=== PATIENT | male | born 1975 | race Caucasian/White ===

== ENCOUNTER 2024-03-13 23:30 | Emergency (ER) | payer SELFPAY ==
[2024-03-13 23:57] VITALS: BP 132/103; PULSE 97; RESP 16; TEMP 37.1; O2SAT 94; BMI 35.0
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
[2024-03-14] MEDS: ACETAMINOPHEN 500 MG TABLET 1000 MG PO (00:30)
[2024-03-14] MEDS: predniSONE 20 MG TABLET 40 MG PO (00:30)
[2024-03-14] MEDS: CYCLOBENZAPRINE HCL 10 MG TABLET PO (00:30)
== END 2024-03-14 00:46 | disposition home or self-care (01) ==
LOC: ED 03-14 00:33
PROVIDERS: Emergency Provider Family Medicine
DX: M62.838 Other muscle spasm (principal); M54.2 Cervicalgia
CPT/HCPCS: 99283; A9270; J7512

== ENCOUNTER 2024-08-03 17:50 | Emergency (ER) | payer MEDICAID, SELFPAY ==
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
--- OUTSIDE RECORDS SUMMARY | 2024-08-03 17:54 | XMS_ITS ---
Author Organization [facility] Address [address] [place] [address] Care Team Providers Care Blasting Contract Man Name Role Phone Unavailable Unavailable Unavailable Surgery Details Not on file Complications Check Surgery Details section. Procedure Estimated Blood Loss Check Surgery Details section. Procedure Findings Check Surgery Details section. Procedure Specimens Taken Check Surgery Details section.
--- OUTSIDE RECORDS SUMMARY | 2024-08-03 17:54 | XMS_ITS | Referral Summary ---
Author Organization [facility] Address [address] [place] [address] Care Team Providers Care Wax Blender Name Role Phone Elsewhere, Pcp Primary Care Provider Unavailabl e Source Comments Patient records contain information from all sites at [facility]. For routine questions regarding patient records, call [phone] during business hours, M-F 8:00 AM - 5:00 PM Central Time. Record requests for emergency care only can be directed to [phone] at any time.[facility] Allergies No known active allergies Medications acetaminophen (TYLENOL) 500 mg tablet Take 1,000 mg by mouth every 6 (six) hours as needed for pain. 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 1 to 4 times per year [...] Answer Date Recorded PHQ-2 Score 2 06/30/2019 [facility] [place] of Occupat ional Health - Occupational Stress [...] Sex Assigned at Male 08/18/2018 2:10 PM REGULATORY ASSOCIATE Legal Sex Male 8:06 AM REGULATORY ASSOCIATE Gender Identity Male 06/19/2020 7:27 AM REGULATORY ASSOCIATE Sexual Orientation Straight 08/18/2018 2: 10 PM REGULATORY ASSOCIATE Last Filed Vital Signs Vital Sign Reading Time Taken Comments Blood Pressure 112/85 06/18/2020 9:21 AM REGULATORY ASSOCIATE Pulse 102 06/18/2020 9:21 AM REGULATORY ASSOCIATE Temperature 36.6 C (97.9 F) 09/22/2019 10:40 AM REGULATORY ASSOCIATE Respiratory Rate 12 06/18/2020 9:21 AM REGULATORY ASSOCIATE Oxygen Saturation 97% 06/18/2020 9:21 AM REGULATORY ASSOCIATE Inhaled Oxygen Concentration - - Weight 104 kg (228 lb 9.9 oz) 09/19/2019 9:05 AM REGULATORY ASSOCIATE Height 186 cm (6' 1.23) 09/19/2019 9:05 AM REGULATORY ASSOCIATE Body Mass Index 29.97 09/19/2019 9:05 AM REGULATORY ASSOCIATE Plan of Treatment Not on file Medical Devices Implanted Type Area Box Maker Wood Device Identifier Shelf Expiration Date Model / Serial / Lot Cmnt Bn Hi Visc Pmma 40 - [id number] Implanted:Qt y: 1 on 10/24/2018 by Hardik Dodge M.D. at [facility] Bone Cement Left: Hip Octavio [id number] / / Hardware (E.G. Pins/Screws/ Rods)-2017 Implanted: (Quantity not on file) Hardware e.g. pins/screws /rods Left: Knee Hardware (E.G. Pins/Screws/ Rods)-2017 Implanted: (Quantity not on file) Hardware e.g. pins/screws /rods Left: Tibia Scrw Hgp Acet Ft 6.5x30 - [id number] Implanted:Qt y: 1 on 10/24/2018 at [facility] Hardware e.g. pins/screws /rods Left: Hip [employer] 07/18/2028 [id number] / / [id number] Scrw Hgp Acet Ft 6.5x50 - [id number] Implanted:Qt y: 1 on 10/24/2018 at [facility] Hardware e.g. pins/screws /rods Left: Hip [employer] 07/18/2028 [id number] / / [id number] Scrw Hgp Acet Ft 6.5x20 - [id number] Implanted:Qt y: 1 on 10/24/2018 at [facility] Hardware e.g. pins/screws /rods Left: Hip [employer] 05/18/2028 [id number] / / [id number] Scrw Hgp Acet Ft 6.5x20 - [id number] Implanted:Qt y: 1 on 10/24/2018 at [facility] Hardware e.g. pins/screws /rods Left: Hip [employer] 08/18/2028 [id number] / / [id number] Wre Fix Lq Ss Sngl End 1.2x30 - [id number] 0 Implanted:Qt y: 3 on 10/24/2018 at [facility] Hardware e.g. pins/screws /rods Left: Hip [employer] [id number] / / Lnr 0d 60x36 - [id number] 0 Implanted:Qt y: 1 on 10/24/2018 at [facility] Hip Implant Left: Hip [employer] 02/15/2023 [id number] / / [id number] Hip Stm Smm Hernandez Sz6 150 - [id number] 0 Implanted:Qt y: 1 on 10/24/2018 at [facility] Hip Implant Left: Hip [employer] 05/18/2028 [id number] / / [id number] Fem Hd Art Ez Crmc +1.5x36 - [id number] Implanted:Qt y: 1 on 10/24/2018 at [facility] Hip Implant Left: Hip [employer] 08/18/2023 [id number] / / [id number] Shll Acet Trb 62 - [id number] 0 Implanted:Qt y: 1 on 10/24/2018 at [facility] Hip Implant Left: Hip [employer] 08/18/2023 [id number] / / [id number] Procedures Procedure Name Priority Date/Time Associated Diagnosis Comments BASIC METABOLIC PANEL, S/P Routine 09/20/2019 4:25 AM REGULATORY ASSOCIATE from Last 3 Months or Most Recently Relevant to Health Maintenance Results * (ABNORMAL) Basic Metabolic Panel (09/20/2019 4:25 AM REGULATORY ASSOCIATE) [facility] Potassium, S 4.8 3.6 - 5.2 mmol/L 09/20/2019 5:59 AM REGULATORY ASSOCIATE DTL Sodium, S 141 135 - 145 mmol/L 09/20/2019 5:59 AM REGULATORY ASSOCIATE DTL Chloride, S 106 98 - 107 mmol/L 09/20/2019 5:59 AM REGULATORY ASSOCIATE DTL Bicarbonate, S 24 22 - 29 mmol/L 09/20/2019 5:59 AM REGULATORY ASSOCIATE DTL Anion Gap 11 7 - 15 09/20/2019 5:59 AM REGULATORY ASSOCIATE DTL BUN (Blood Urea Nitrogen), S 10 8 - 24 mg/dL 09/20/2019 5:59 AM REGULATORY ASSOCIATE DTL Creatinine 0.97 0.74 - 1.35 mg/dL 09/20/2019 5:59 AM REGULATORY ASSOCIATE DTL eGFR-Non Black/ >90 >=60 mL/min/BSA 09/20/2019 5:59 AM REGULATORY ASSOCIATE DTL Comment: ----ADDITIONAL INFORMATION---- Estimated GFR calculated using the 2009 CKD_EPI creatinine equation. eGFR-Black/Afri can Finnish >90 >=60 mL/min/BSA 09/20/2019 5:59 AM REGULATORY ASSOCIATE DTL Comment: ----ADDITIONAL INFORMATION---- Estimated GFR calculated using the 2009 CKD_EPI creatinine equation. Calcium, Total, S 8.3(L) 8.6 - 10.0 mg/dL 09/20/2019 5:59 AM REGULATORY ASSOCIATE DTL Glucose, S 151(H) 70 - 140 mg/dL 09/20/2019 5:59 AM REGULATORY ASSOCIATE DTL Blood (Blood, Venous) 09/20/2019 4:25 AM REGULATORY ASSOCIATE 09/20/2019 5:44 AM REGULATORY ASSOCIATE Beata Warren APRN, C.N.P., M.S.N. LAB BLOOD AD D-ON Final Result [facility] [address] [place] [address], [facility] [address] [place] [address] from Last 3 Months or Most Recently Relevant to Health Maintenance Insurance * Guarantor: [employer] Account Type Relation to Patient Date of Phone Billing Address Workers [employer] [address] [place] [address] SELECTIVE INSURANCE SELECTIVE INSURANCE SELECT[employer]ANCE [employer]ANCE [employer] Advance Directives For more information, please contact: [phone] * Full Code (Latest Code Status on File) Date Activated Date Inactivated Comments 09/19/2019 6:21 PM 09/22/2019 1:51 PM Question Answer Comments Full Code: Discussed * Full Code Date Activated Date Inactivated Comments 12/26/2018 5:32 PM 12/28/2018 5:35 PM Question Answer Comments Full Code: Not Discussed Due to: Not medically appropriate Care Teams Wax Blender Relationship Specialty Start Date End Date Elsewhere, Pcp PCP - General 11/09/21
[2024-08-03 18:28] VITALS: BP 103/78; PULSE 124; RESP 20; TEMP 38.6; O2SAT 92; BMI 35.0
--- NOTE | 2024-08-03 18:51 | CRLHL7_ITS ---
For Patients: As a result of the Century Cures Act, medical imaging exams and procedure reports are released immediately into your electronic medical record. You may view this report before your referring provider. If you have questions, please contact your health care provider. Indication: Cough. Technique: Chest 2 views. Comparison: None. Findings/Impression: Cardiovascular and mediastinum: Heart size and vasculature are normal in caliber and appearance. Lungs and pleural spaces: Left perihilar infiltrates consistent with pneumonia. There is a masslike component also in this area. Follow-up imaging is indicated to ensure resolution and exclude a malignant process. Remainder of the lungs and pleural spaces are clear. No pneumothorax. Bones and soft tissues: No significant findings. Dictated by Luis Felipe Forrest MD @ 08/03/2024 7:39:15 PM (Electronically Signed)
[2024-08-03 19:18] LABS: PCR FLU A Negative PCR FLU A (Negative); PCR FLU B Negative PCR FLU B (Negative); PCR RSV Negative PCR RSV (Negative); SARS PCR* Negative SARS-CoV-2 (Negative)
--- NOTE | 2024-08-03 19:41 | ED_ITS ---
HPI - General Adult General Chief complaint: Cough Stated complaint: Fever, cough that pulled stomach muscles, 2 wks Time Seen by Provider: 08/03/24 19:26 History of Present Illness HPI narrative: This 49-year-old male comes in reporting cough and fever. His symptoms began about a week and half ago. He arrives here with temperature of 101.4? F and some tachycardia at 124 beats per minute. He is getting 92% oximetry on room air. Related Data Home Medications ?Medication ?Instructions ?Recorded ?Confirmed No Known Home Medications 08/03/24 08/03/24 Allergies Allergy/AdvReac Type Severity Reaction Status Date / Time No Known Drug Allergies Allergy Verified 03/14/24 00:01 Review of Systems Status of ROS: Reports: 10 or more systems reviewed and unremarkable except as noted in History and below Narrative: Constitutional: No weight gain or loss. Eyes: No discharge. No vision changes. HENT: No congestion, no sore throat, no ear pain. Cardiovascular: No chest pain, no palpitations. Respiratory: No shortness of breath, no wheezes. Frequent cough. Gastrointestinal: No abdominal pain, no vomiting, no diarrhea. Genitourinary: No dysuria, no hematuria. Musculoskeletal: Normal range of motion. Skin: No rashes, no pruritis. Neurological: No dizziness, weakness, sensory change, speech change. Endo/Heme/Allergies: No bruising or bleeding. No polydipsia. Pysch: no suicidality, no anxiety, no insomnia. All other systems reviewed and are negative. Exam Narrative: Exam Narrative: Constitutional: Well-developed, well-nourished. HEENT: Normocephalic, atraumatic. Neck: Normal range of motion. Nontender. Supple. Heart: Regular. No murmurs. Normal rate. Intact distal pulses. Lungs: No chest discomfort. Bilateral rhonchi. Abdomen: Normal bowel sounds. Nontender. No rebound tenderness. Genitalia: Deferred. Back: No midline tenderness. Normal range of motion. Extremities: Normal range of motion. No injury. Skin: Intact. No rash. Warm. No erythema or pallor. Neurologic: No altered sensation. No weakness. Alert and oriented. Psychiatric: No suicidality. No anxiety or depression. No insomnia. Nursing notes and vitals signs are reviewed. Const: Vital Signs, click to edit/add: Vital Signs - 24 hr 08/03/24 18:28 Temperature 101.4 F H Pulse Rate [Pulse Oximeter] 124 H Respiratory Rate 20 Blood Pressure [Ri ght Upper Arm] 103/78 Pulse Oximetry 92 Oxygen Delivery Me thod Room Air Course Vital Signs Vital signs: Initial Vital Signs Temperature 101.4 F H 08/03/24 18:28 Temperature Source Temporal Artery Scan 08/03/24 18:28 Pulse Rate 124 H 08/03/24 18:28 Respiratory Rate 20 08/03/24 18:28 Blood Pressure 103/78 08/03/24 18:28 Blood Pressure Mean 86 08/03/24 18:28 Blood Pressure Position Sitting 08/03/24 18:28 Pulse Oximetry 92 08/03/24 18:28 Oxygen Delivery Method Room Air 08/03/24 18:28 Vital Signs Temperature 101.4 F H 08/03/24 18:28 Pulse Rate 124 H 08/03/24 18:28 Respiratory Rate 20 08/03/24 18:28 Blood Pressure 103/78 08/03/24 18:28 Pulse Oximetry 92 08/03/24 18:28 Oxygen Delivery Method Room Air 08/03/24 18:28 Temperature 101.4 F H 08/03/24 18:28 Pulse Rate 124 H 08/03/24 18:28 Respiratory Rate 20 08/03/24 18:28 Blood Pressure 103/78 08/03/24 18:28 Pulse Oximetry 92 08/03/24 18:28 Oxygen Delivery Method Room Air 08/03/24 18:28 Medications Administered Medications: Discontinued Medications Generic Name Dose Route Start Last Admin Trade Name Freq PRN Reason Stop Dose Admin Sodium Chloride 500 mls @ 500 mls/hr 08/03/24 19:53 08/03/24 20:50 0.9 % Sodium Chloride 500 Ml IV 08/03/24 20:52 500 mls/hr .Q1H ONE Administration Ceftriaxone Sodium 1 gm/ 100 mls @ 200 mls/hr 08/03/24 19:53 08/03/24 20:50 Sodium Chloride IVPB 08/03/24 19:54 200 mls/hr ONCE ONE Administration Ketorolac Tromethamine 30 mg 08/03/24 19:53 08/03/24 20:50 Ketorolac 30 Mg/Ml Inj IVP 08/03/24 19:54 30 mg ONCE ONE Administration Methylprednisolone Sodium Succinate 125 mg 08/03/24 19:53 08/03/24 20:51 Methylprednisolone Sod Succ 62.5 Mg/Ml (125) IVP 08/03/24 19:54 125 mg ONCE ONE Administration Medical Decision Making MDM Narrative Medical decision making narrative: This patient comes in with cough and fever. Chest x-ray is obtained and shows evidence of a left pneumonia. The patient arrives with tachycardia and fever. An IV was established as he is tripping triggers to do a sepsis workup. The patient did receive 500 mL of normal saline intravenously. His lactate returns in normal range. He is feeling better with the fluids and additional treatments of Toradol 30 mg, a steroid, and a g of Rocephin. He is maintaining sufficient oximetry and is okay to be discharged home. I recommended that he have a follow-up chest x-ray to see that these findings on x-ray resolve. A prescription for doxycycline and Tylenol 3 is provided from the [employer]. Lab Data Labs: Lab Results 08/03/24 08/03/24 Range/Units 18:37 20:28 WBC 12.57 H (4.50-11.00) K/uL RBC 5.21 (4.30-5.90) m/uL Hgb 14.4 (13.5-17.5) gm/dL Hct 43.9 (37.0-53.0) % MCV 84 (80-100) fL MCH 28 (26-34) pg MCHC 33 (32-36) gm/dL RDW Coeff of Samantha 13.1 (11.5-15.5) % Plt Count 708 H (140-440) K/uL Neut % (Auto) 70.1 (42.0-72.0) % Lymph % (Auto) 15.9 L (20-44) % Valencia % (Auto) 10.2 (0.0-11.0) % Eos % (Auto) 2.3 (0.0-7.0) % Baso % (Auto) 0.5 (0.0-3.0) % Neut # (Auto) 8.80 H (1.7-7.0) K/uL Lymph # (Auto) 2.00 (0.90-2.90) K/uL Valencia # (Auto) 1.30 H (0.00-0.90) K/UL Eos # (Auto) 0.30 (0.00-0.50) K/uL Baso # (Auto) 0.10 (0.00-0.30) K/uL Abs Immat Gran (auto) 0.10 (0.00-0.30) K/uL Imm/Tot Granulo (auto) 1.0 % Lactate 1.8 (0.5-1.9) mmol/L SARS-CoV-2 (PCR) Negative SARS-CoV-2 (Negative) Influenza Type A (PCR) Negative PCR FLU A (Negative) Influenza Type B (PCR) Negative PCR FLU B (Negative) RSV (PCR) Negative PCR RSV (Negative) Imaging Data Chest x-ray: Radiologist's impression: Cardiovascular and mediastinum: Heart size and vasculature are normal in caliber and appearance. Lungs and pleural spaces: Left perihilar infiltrates consistent with pneumonia. There is a masslike component also in this area. Follow-up imaging is indicated to ensure resolution and exclude a malignant process. Remainder of the lungs and pleural spaces are clear. No pneumothorax. Bones and soft tissues: No significant findings. Discharge Plan Discharge Prescriptions: No Action No Known Home Medications Follow Up/Referrals: Provider,Not a Local [Primary Care Provider] -
[2024-08-03 20:36] LABS: Lactate* 1.8 mmol/L (0.5-1.9)
[2024-08-03 20:38] LABS: Basophils Percent Auto 0.5 % (0.0-3.0); Eosinophils Percent Auto 2.3 % (0.0-7.0); Hematocrit 43.9 % (37.0-53.0); Hemoglobin* 14.4 gm/dL (13.5-17.5); Lymphocytes Percent Auto 15.9 % (20-44); Mean Corpuscular HGB Conc 33 gm/dL (32-36); Mean Corpuscular Hemoglobin 28 pg (26-34); Mean Corpuscular Volume 84 fL (80-100); Monocytes Percent Auto 10.2 % (0.0-11.0); Neutrophils Percent Auto 70.1 % (42.0-72.0); Platelet Count* 708 K/uL (140-440); RDW Coefficient of Variation % 13.1 % (11.5-15.5); Red Blood Count 5.21 m/uL (4.30-5.90); White Blood Count* 12.57 K/uL (4.50-11.00)
[2024-08-03 20:43] LABS: Slide Review Reflex No
[2024-08-03] MEDS: 0.9 % SODIUM CHLORIDE 500 ML 500 ML IV (20:50)
[2024-08-03] MEDS: cefTRIAXone 1 GM in 0.9 % SODIUM CHLORIDE Mini-bag 100 ML IVPB (20:50)
[2024-08-03] MEDS: KETOROLAC 30 MG/ML inj IVP (20:50)
[2024-08-03] MEDS: METHYLPREDNISOLONE SOD SUCC 62.5 MG/ML (125) 125 MG IVP (20:51)
== END 2024-08-03 22:02 | disposition home or self-care (01) ==
PROVIDERS: Emergency Provider Emergency Medicine Emergency Medical Services
DX: J18.9 Pneumonia, unspecified organism (principal); R00.0 Tachycardia, unspecified; R50.9 Fever, unspecified
CPT/HCPCS: 36415; 71046; 83605; 85025; 87040; 87631; 96365; 96375; 99284; J0696; J1885; J2919; J7030